=== PATIENT | female | born 1975 | race Caucasian/White ===

== ENCOUNTER → 2023-10-01 | Emergency (ER) | payer OTHER ==
[~2023-10-01] MED LIST: CEPHALEXIN 250 MG CAP ONE; DOXYCYCLINE 100 MG CAP PO ONE; HYDROCODONE/APAP 7.5/325 MG TAB ONE; KETOROLAC 30 MG/ML INJ ONE; LIDOCAINE 1% MPF 5 ML VIAL ONE
--- NOTE | 2023-10-01 18:40 | RAD REPORT ---
EXAM DESCRIPTION: US - Extremity Nonvascular Limited - 10/01/2023 5:40 pm CLINICAL HISTORY: r/o abscess on back COMPARISON: No comparisons TECHNIQUE: Sonographic grayscale and color flow images of the left upper back were obtained. FINDINGS: Diffuse skin thickening in the area of concern. Heterogeneous hypoechoic signal within the skin, extending towards the skin surface and hypo dermis, ill-defined, but measures up to 11 x 9 mm in greatest axial dimensions and 4 mm in thickness. Internal echogenic structures which may relate to a debris or mineralizing content. IMPRESSION: Ill-defined 11 mm epidermal possibly early phlegmon or abscess. Nonspecific internal ech ogenic content which may relate to debris or mineralizing.
--- NOTE | 2023-10-01 20:27 | EDPHYS ---
Physician Documentation [facility] Name: Lazara Gaston Age: 48 yrs Sex: Female : 1975 Arrival Date: 10/01/2023 Time: 16:39 Bed 19 Private MD: ED Physician Dominick Art HPI: 10/01 00:27 This 48 yrs old Female presents to ER via Ambulatory with complaints of Boil. kb 00:27 Patient is a 48-year-old female who presents for an abscess to her left upper back that kb started 3 days ago. States she went to a clinic yesterday and was given Bactrim but symptoms are worse today. States she has had these multiple times in the past and every time she has been prescribed Bactrim it is made it worse. States she told the provider that prescribed the Bactrim that yesterday and they still prescribed the same. Denies fever, chills.. 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 - Social history:: Smoking status: Patient denies any tobacco usage or history of. ROS: 10/01 00:27 Constitutional: As per HPI kb Exam: 00:27 Constitutional: This is a well developed, well nourished patient who is awake, alert, kb and in no acute distress. Head/Face: Normocephalic, atraumatic. ENT: Moist Mucous membranes Cardiovascular: Regular rate Respiratory: Respirations even and unlabored. No increased work of breathing. Talking in full sentences MS/ Extremity: Pulses equal, no cyanosis. Neurovascular intact. Full, normal range of motion. Neuro: Awake and alert, GCS 15, oriented to person, place, time, and situation. Moves all extremities. Normal gait. 00:27 Skin: abscess, that is moderate sized, of the left subscapular area, Vital Signs: 09/30 16:59 BP 167 / 99; Pulse 104; Resp 18; Temp 98.2(O); Pulse Ox 100% ; Weight 81.65 kg; Height mb9 5 ft. 6 in. ; Pain 10/10; 17:44 BP 151 / 95; Pulse 88; Resp 18; Pulse Ox 97% on R/A; mb9 19:00 BP 155 / 87; Pulse 95; Resp 16; Temp 98.5; Pulse Ox 97% on R/A; Pain 7/10; pf1 20:00 BP 149 / 76; Pulse 89; Resp 16; Pulse Ox 98% on R/A; pf1 21:00 BP 138 / 72; Pulse 85; Resp 16; Temp 98; Pulse Ox 100% on R/A; Pain 3/10; pf1 16:59 Body Mass Index 29.05 (81.65 kg, 167.64 cm) mb9 16:59 Pain Scale: Adult mb9 19:00 Pain Scale: Adult pf1 21:00 Pain Scale: Adult pf1 Procedures: 10/01 00:43 I \T\ D: Incision and drainage was performed for an abscess of the left subscapular area kb Prepped with Betadine, Anesthetized with 2 ml's 1% Lidocaine. Incised with #11 blade. Drained small amount purulent fluid. Dressing: sterile 4x4 gauze, the patient tolerated the procedure well. MDM: 09/30 16:45 Patient medically screened. kb 10/01 00:43 Differential diagnosis: abscess, insect bite, cellulitis. Data reviewed: vital signs, kb nurses notes. Counseling: I had a detailed discussion with the patient and/or guardian regarding the historical points, exam findings, and any diagnostic results supporting the discharge/admit diagnosis, the need for outpatient follow up, a family practitioner, to return to the emergency department if symptoms worsen or persist or if there are any questions or concerns that arise at home. 09/30 17:20 Order name: US Extrmty Nonvasular Limited; Complete Time: 18:41 kb 09/30 19:54 Order name: I\T\D Setup; Complete Time: 20:02 kb 09/30 20:25 Order name: Dressing - Wound; Complete Time: 20:25 pf1 Administered Medications: 09/30 17:24 Drug: Ketorolac IM 30 mg IM once Route: IM; Site: right gluteus; mb9 18:48 Follow up: Response: No adverse reaction mb9 19:24 Drug: Hydrocodone-Acetaminophen PO (7.5 mg-325 mg) 1 tabs PO once Route: PO; pf1 20:02 Follow up: Response: No adverse reaction; Marked relief of symptoms; Pain is decreased; pf1 RASS: Alert and Calm (0) 20:15 Drug: Lidocaine Infiltration (1 %) 5 ml 5 ml Infiltration once; to bedside {Note: per pf1 NP. Angella} Volume: 5 ml; Route: Infiltration; 20:32 Follow up: Response: No adverse reaction; Marked relief of symptoms; Pain is decreased pf1 20:27 Drug: Doxycycline PO 100 mg PO once Route: PO; pf1 21:00 Follow up: Response: No adverse reaction pf1 20:27 Drug: Cephalexin PO 500 mg PO once Route: PO; pf1 21:00 Follow up: Response: No adverse reaction pf1 Disposition Summary: 10/01/23 20:26 Discharge Ordered Notes: Location: Home kb Condition: Stable kb Diagnosis - Cutaneous abscess of back [any part, except buttock] kb Followup: kb - With: Emergency Department - When: As needed - Reason: Worsening of condition Followup: kb - With: Private Physician - When: 2 - 3 days - Reason: Recheck today's complaints, Continuance of care, Re-evaluation by your physician Discharge Instructions: - Discharge Summary Sheet kb - Skin Abscess, [id number] kb - Incision and Drainage, Care After kb Forms: - Medication Reconciliation Form kb - Thank You Letter kb - Antibiotic Education kb - Prescription Opioid Use kb - Patient Portal Instructions kb - Leadership Thank You Letter kb Prescriptions: - Cephalexin 500 mg Oral Capsule - take 1 capsule ORAL route every 8 hours for 10 days; 30 capsule; Refills: 0, kb Product Selection Permitted - Diflucan 150 mg Oral tablet - take 1 tablet ORAL route one time for 1 day May repeat dose in 3 days if kb symptoms persist; 2 tablet; Refills: 0, Product Selection Permitted - Doxycycline Hyclate 100 mg Oral Tablet - take 1 tablet ORAL route every 12 hours; 20 tablet; Refills: 0, Product kb Selection Permitted Addendum: 10/04/2023 09:41 I was immediately available for consultation during this patient's visit. I did not e c2 personally see the patient or discuss the patient with the VINH. . Signatures: Dispatcher [employer] Angella Interiano FNP-C MINGLER OPERATOR-Tracy Pearson RN RN mb9 Payal Morris RN RN pf1 Dominick Art MD MD ec2 Corrections: (The following items were deleted from the chart) 10/01 00:29 00:27 Patient is a 48-year-old female who presents for an abscess to her left upper kb back that started 3 days ago. States she went to a clinic yesterday and was given Bactrim but symptoms are worse today. States she has had these multiple times in the past and every time she has been prescribed Bactrim it is made it worse. States she told the provider that prescribed the Bactrim that yesterday and they still prescribed the same.. kb
--- NOTE | 2023-10-01 20:27 | ER ---
Nurse's Notes [facility] Name: Lazara Gaston Age: 48 yrs Sex: Female : 1975 Arrival Date: 10/01/2023 Time: 16:39 Bed 19 Private MD: Diagnosis: Cutaneous abscess of back [any part, except buttock] Presentation: 09/30 16:59 Chief complaint: Patient states: "I've had a boil on my left shoulder for the past 3 mb9 days and its getting worse. It's hot, swollen, and painful. I went to a clinic yesterday and they prescribed me Bactrim but it's not helping.". Coronavirus screen: Vaccine status: Patient reports receiving the 2nd dose of the covid vaccine. Ebola Screen: No symptoms or risks identified at this time. Initial Sepsis Screen: Does the patient meet any 2 criteria? HR > 90 bpm. Does the patient have a suspected source of infection? No. Patient's initial sepsis screen is negative. Risk Assessment: Do you want to hurt yourself or someone else? Patient reports no desire to harm self or others. Onset of symptoms was 2023. 16:59 Method Of Arrival: Ambulatory mb9 16:59 Acuity: KENDALL 3 mb9 Triage Assessment: 17:00 General: Appears uncomfortable, Behavior is cooperative, anxious, crying. Pain: mb9 Complains of pain in back Pain radiates to left shoulder Pain currently is 10 out of 10 on a pain scale. Quality of pain is described as burning, Pain began 2-3 days ago. Is continuous. EENT: No signs and/or symptoms were reported regarding the EENT system. Neuro: Starr Agitation-Sedation Scale (RASS): 0 - Alert and Calm Level of Consciousness is awake, alert, obeys commands, Oriented to person, place, time, situation, Appropriate for age. Cardiovascular: Patient's skin is warm and dry. Respiratory: Airway is patent Respiratory effort is even, unlabored, Respiratory pattern is regular, symmetrical, Breath sounds are clear bilaterally. GI: Abdomen is round non-distended, Bowel sounds present X 4 quads. Abd is soft and non tender X 4 quads. : No signs and/or symptoms were reported regarding the genitourinary system. Derm: Skin is pink, warm \\T\\ dry. Abscess located on left shoulder is quarter sized, has no drainage, is hot to touch, is red, is raised. Musculoskeletal: Range of motion: intact in all extremities. 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 - Social history:: Smoking status: Patient denies any tobacco usage or history of. Screenin:02 [facility] ED Fall Risk Assessment (Adult) History of falling in the last 3 months, mb9 including since admission No falls in past 3 months (0 pts) Confusion or Disorientation No (0 pts) Intoxicated or Sedated No (0 pts) Impaired Gait No (0 pts) Mobility Assist Device Used No (0 pt) Altered Elimination No (0 pt) Score/Fall Risk Level 0 - 2 = Low Risk Oriented to surroundings, Maintained a safe environment, Educated pt \\T\\ family on fall prevention, incl call for assistance when getting out of bed. Abuse screen: Denies threats or abuse. Nutritional screening: No deficits noted. Tuberculosis screening: No symptoms or risk factors identified. Assessment: 17:01 Reassessment: see triage assessment. mb9 18:19 Reassessment: Patient and/or family updated on plan of care and expected duration. Pain mb9 level reassessed. Patient is alert, oriented x 3, equal unlabored respirations, skin warm/dry/pink. Patient states symptoms have not improved. 19:00 General: Appears in no apparent distress. uncomfortable, well groomed, well developed, pf1 Behavior is calm, cooperative, appropriate for age, quiet. 19:00 Pain: Complains of pain in left back scapula region Pain currently is 8 out of 10 on a pf1 pain scale. Neuro: No deficits noted. Level of Consciousness is awake, alert, obeys commands, Oriented to person, place, time, situation. Cardiovascular: No deficits noted. Capillary refill < 3 seconds Patient's skin is warm and dry. Respiratory: No deficits noted. Airway is patent Respiratory effort is even, unlabored, Respiratory pattern is regular, symmetrical, Breath sounds are clear bilaterally. GI: No deficits noted. No signs and/or symptoms were reported involving the gastrointestinal system. : No deficits noted. No signs and/or symptoms were reported regarding the genitourinary system. EENT: No deficits noted. No signs and/or symptoms were reported regarding the EENT system. Derm: abscess to left scapula region. Musculoskeletal: No deficits noted. Circulation, motion, and sensation intact. Capillary refill < 3 seconds, Range of motion: intact in all extremities. 20:00 Reassessment: Patient appears in no apparent distress at this time. Patient and/or pf1 family updated on plan of care and expected duration. Pain level reassessed. Patient is alert, oriented x 3, equal unlabored respirations, skin warm/dry/pink. 20:40 Reassessment: Patient requested additional prescription, patient pending discharge, pf1 Provider notified. Vital Signs: 16:59 BP 167 / 99; Pulse 104; Resp 18; Temp 98.2(O); Pulse Ox 100% ; Weight 81.65 kg; Height mb9 5 ft. 6 in. ; Pain 10/10; 17:44 BP 151 / 95; Pulse 88; Resp 18; Pulse Ox 97% on R/A; mb9 19:00 BP 155 / 87; Pulse 95; Resp 16; Temp 98.5; Pulse Ox 97% on R/A; Pain 7/10; pf1 20:00 BP 149 / 76; Pulse 89; Resp 16; Pulse Ox 98% on R/A; pf1 21:00 BP 138 / 72; Pulse 85; Resp 16; Temp 98; Pulse Ox 100% on R/A; Pain 3/10; pf1 16:59 Body Mass Index 29.05 (81.65 kg, 167.64 cm) mb9 16:59 Pain Scale: Adult mb9 19:00 Pain Scale: Adult pf1 21:00 Pain Scale: Adult pf1 ED Course: 16:45 Patient arrived in ED. mg5 16:45 Angella Horner FNP-C is [facility]. kb 16:45 Dominick Art MD is Attending Physician. kb 16:46 Tracy Ferreira RN is Primary Nurse. mb9 16:58 Arm band placed on. mb9 17:00 Triage completed. mb9 17:02 Placed in gown. Bed in low position. Call light in reach. Side rails up X 1. Provided mb9 Education on: press call light if needing anything. Client placed on continuous cardiac and pulse oximetry monitoring. NIBP monitoring applied. phototypesetting equipment monitor on. Door closed. Noise minimized. Warm blanket given. 17:42 Extrmty Nonvasular Limited In Process Unspecified. EDMS 19:03 Report given to CARMELA Yañez. mb9 20:14 Primary Nurse role handed off by Tracy Ferreira RN pf1 20:14 Payal Morris, CARMELA is Primary Nurse. pf1 20:35 Dressings: 4X4s X 1; back with foam tape. pf1 20:44 No provider procedures requiring assistance completed. Patient did not have IV access pf1 during this emergency room visit. Administered Medications: 17:24 Drug: Ketorolac IM 30 mg IM once Route: IM; Site: right gluteus; mb9 18:48 Follow up: Response: No adverse reaction mb9 19:24 Drug: Hydrocodone-Acetaminophen PO (7.5 mg-325 mg) 1 tabs PO once Route: PO; pf1 20:02 Follow up: Response: No adverse reaction; Marked relief of symptoms; Pain is decreased; pf1 RASS: Alert and Calm (0) 20:15 Drug: Lidocaine Infiltration (1 %) 5 ml 5 ml Infiltration once; to bedside {Note: per pf1 NP. Angella} Volume: 5 ml; Route: Infiltration; 20:32 Follow up: Response: No adverse reaction; Marked relief of symptoms; Pain is decreased pf1 20:27 Drug: Doxycycline PO 100 mg PO once Route: PO; pf1 21:00 Follow up: Response: No adverse reaction pf1 20:27 Drug: Cephalexin PO 500 mg PO once Route: PO; pf1 21:00 Follow up: Response: No adverse reaction pf1 Medication: 17:02 VIS not applicable for this client. mb9 Outcome: 20:26 Discharge ordered by . [place] 20:44 Discharged to home ambulatory, with family, pf1 20:44 Condition: improved 20:44 Discharge instructions given to patient, family, Instructed on discharge instructions, follow up and referral plans. Demonstrated understanding of instructions, follow-up care, 21:02 Prescriptions given X 3, pf1 21:02 Patient left the ED. pf1 Signatures: Dispatcher [employer] Angella Interiano, CRUSHER AND BINDER OPERATOR-C CRUSHER AND BINDER OPERATOR-Ckb Tracy Ferreira, RN RN mb9 Payal Morris RN RN pf1 Kristi Whatley 5
[2023-10-01 21:14] VITALS: TEMP 98.2
[2023-10-01 21:38] VITALS: BP 151/95; O2SAT 97
== END ==
LOC: ER 16:39
PROC: 0H96XZZ Drainage of Back Skin, External Approach (ICD-10-PCS; principal; 2023-10-01)
DX: L02.212 Cutaneous abscess of back [any part, except buttock and flank] (principal); Z88.5 Allergy status to narcotic agent; Z88.8 Allergy status to other drugs, medicaments and biological substances
CPT/HCPCS: 76882; 96372; 99285; 10060; J2001

== ENCOUNTER → 2023-10-03 | Emergency (ER) | payer OTHER ==
[~2023-10-03] MED LIST changes: -CEPHALEXIN 250 MG CAP ONE; +CLINDAMYCIN 300MG D5W 300 MG/50 ML BAG IV SCH; -DOXYCYCLINE 100 MG CAP PO ONE; +FENTANYL CITR 100 MCG/2 ML ONE; -HYDROCODONE/APAP 7.5/325 MG TAB ONE; -KETOROLAC 30 MG/ML INJ ONE; +LIDOCAINE 1% 20 ML MDV ONE; -LIDOCAINE 1% MPF 5 ML VIAL ONE; +LORazepam 2 MG/ML VIAL ONE; +ONDANSETRON 4 MG/2 ML VIAL ONE
--- OUTSIDE RECORDS SUMMARY | 2023-10-03 14:11 | XMS REPORT | Continuity of Care Document ---
Author Name Unknown Address [address] [facility] [address] [id number] [facility] thconnect Address [address] [facility] [address] [place] [address] Care Team Providers Care Spud Grader Name Role Phone Jayant Beltran Attending Clinician Unavailable Physician, No Primary or Family Admitting Clinic brenda Unavailable Payers Payer Name Policy Type Policy Number Effective Date Expirati on Date Source Allergies, Adverse Reactions, Alerts Allergy Name Allergy Type Status Severity Reaction(s) Onset Date Inactive Date Treating Clinician Comments Source No Known Allergie s DA Active U 10-10 00:00: 00 [facility] Encounters Start Date/Time End Date/Time Encounter Type Admission Type Attending Clinicians Care Facility Care Department Encounter ID Source 2022-10-10 20:03:00 2022-10-10 22:04:00 Emergency EM Jayant Beltran [facility] [id number] [facility] Notes Date/Time Note Provider Source 2022-10-10 21:31:00 [id number]:31:00 [facility] ([facility])EMERGENCY PROVIDER REPORTREPORT#:[id number] REPORT STATUS: SignedDATE:10/10/22 TIME: 2130 PATIENT: SUJIT PETIT UNIT #: [id number]#: [id number] ROOM/BED:AGE: 47 SEX: F PCP PHYS: No Primary or Family PhysicianSERVICE AUTHOR: Mayur Beltran LAW ENFORCEMENT INSTRUCTOR * ALL edits or amendments must be made on the electronic/computer document * Mayur Beltran 10/10/22 2131:HPI-Facial Problem/Injury Free Text HPI NotesFree Text HPI [id number] F in for evaluation of facial abscess on left side fo face for 1 week. Patient denies any treatment of symtpoms. Patient also denies any fever or chills. GeneralConfirmed Patient YesPatient Type New patientInitial Greet Date/Time 10/10/222016 PresentationChief Complaint Swelling, abscess to left faceHx Obtained From PatientOnset Occurred One week agoSymptom Duration Since onsetProgression since Onset Gradually worseningCaused by No trauma by historyLocation Temporomandibular jt LQuality Aching, PainfulRadiation Does not radiateSeverity: Onset Pain level 2 out of 10Severity: Current Pain level 3 out of 10Associated Other Pt denies other symptomsExacerbated by PalpationRelieved by Nothing Review of Systems ROS StatementsAll systems rev neg except as marked. Basic Review of SystemsBasic ROS RESP: No SOB, CV: No chest pain, GI: No abd pain/vomiting, : No dysuria/frequency, HEM: No bleeding/bruising, PSYCH: NL thought content Focused Review of SystemsConstitutionalDenies: Chills, Fatigue, Fever. Ears/Nose/ThroatDenies: Sore throat, Throat pain, Toothache. MusculoskeletalDenies: Back pain, Neck pain. SkinReports: Abscess, Erythema. Denies: Rash, Swelling. NeurologicDenies: Generalized weakness, Headache, Lightheaded, Spinning sensation, Syncope. Past Medical History - AdultStated Complaint ABCESS LT SIDE OF OF FACE(YAZDANISM AREA)Review of Nursing Notes Rev avail, and agreePt reports no significant: Past medical history, Past surgical history Physical Exam Vital SignsReview of Vital Signs Reviewed Basic Physical ExamBasic PE GEN: Well appearing/NAD, RESP: No resp distress, CV: Reg rate rhythm,ABD: Soft/non-tender, EXT: No gross abnormality, SKIN: No rashes, warm/dry, PSYCH: NL thought content Focused PEGeneral/Const General/Const Awake, Alert, No acute distress, CooperativeMS Head Head Atraumatic, NormocephalicEyes Eyes Atraumatic, PERRL, EOMI, No periorbital redness, No periorbital swelling, No photophobiaEars/Nose/Throat Ears/Nose/Throat Atraumatic, Airway patent, Mucous membranes moist, No pooling of secretions, No trismus, Tympanic membs NL, Nose exam NL, No sinus tenderness, No facial swellingMS Neck Neck Atraumatic, Supple, No meningismus, Full range of motion, No adenopathy,No swelling, Non-tender, No midline vertebral tendResp/Chest Respiratory/Chest Atraumatic, Breath sounds NL, Breath sounds = bilat, No respiratory distress, No wheezing, No retractionsCardiovascular Cardiovascular Heart rate NL, Regular rhythm, Heart sounds NL, Cap refill notdelayed, Peripheral circulation NLSkin Abscess #1 Location/Condition Location (left temp;e), Small, Erythema surrounding, Indurated, Tender. Negative: Fluctuant, Purulent discharge. Neurologic Neurologic Oriented X3, Speech NL, No motor deficits, No sensory deficits, CNII - XII intact Interpretation Diagnostics Lab Results InterpretationConsiderations Independ review imaging, Reviewed prior records Point of Care TestingPulse Oximetry Pulse Ox % 99 On: Room air Interpretation Interpreted by or, Pulse oximetry normal Time 2140 Re-Evaluation MDM Free Text MDM NotesFree Text MDM [id number] female in for evaluation of abscess to the left side of face for 1 week. Plan to discharge patient home with antibiotics and pain medicine. Patient doesnot have a drainable abscess. Patient referred to plastics for further evaluation. ED CourseMedication(s) OrderedMedication(s) Ordered:Anti-Infective Agents Sig/Bertha Start time Last Medication Dose Route Stop Time Status Admin Doxycycline 100 MG X1ED STA 10/10 2132 DC Monohydrate PO 10/10 2133 Cardiovascular Drugs Sig/Bertha Start time Last Medication Dose Route Stop Time Status Admin Lidocaine HCl 5 ML X1ED STA 10/10 2016 DC LOCAL 10/10 2017 Central Nervous System Agents Sig/Bertha Start time Last Medication Dose Route Stop Time Status Admin Hydrocodone Bitart/ 1 TAB X1ED STA 10/10 2132 DC Acetaminophen PO 10/10 2133 Differential DiagnosisDifferential Diagnosis Abrasion, Contusion, abscess Patient Discharge Departure Vital Signs/ConditionCondition Stable Clinical ImpressionClinical ImpressionPrimary Impression: Orbital cellulitis on left Disposition DecisionDischarge )( Discharged to Home Yes )( Time 2136 )( Date 10/10/22 Discharge/Care PlanCounseled Regarding Diagnosis, Lab results, Prescriptions, Need for follow-up, When to return to EDPatient Instructions ED Periorbital CellulitisReferralsProvider Referral: Baudilio Haile MD Address: [address] [place] [address] [address] [place] [address] Provider Referral: Joellen Tobar MD Address: [address] [facility] [place] [address] Provider Referral: Jorje Carroll MD Address: [address] [place] [facility] [address] [place] [address] Provider Referral: Eber Riley Jr, DO Address: [address] [place] [address] Discharge NoteI have spoken with the patient and/or caregivers. I have explained the patient'scondition, diagnoses and treatment plan based on the information available to meat this time. I have answered the patient's and/or caregiver's questions and addressed any concerns. The patient and/or caregivers have as good an understanding of the patient's diagnosis, condition and treatment plan as can beexpected at this point. The vital signs have been stable. The patient's condition is stable and appropriate for discharge from the emergency department. The patient will pursue further outpatient evaluation with the primary care physician or other designated or consulting physician as outlined in the discharge instructions. The patient and/or caregivers are agreeable to this planof care and follow-up instructions have been explained in detail. The patient and/or caregivers have received these instructions in written format and have expressed an understanding of the discharge instructions. The patient and/or caregivers are aware that any significant change in condition or worsening of symptoms should prompt an immediate return to this or the closest emergency department or a call to 911. Brandy Fu 10/12/22 1514:Past Medical History - AdultAllergiesCoded Allergies:No Known Allergies (10/10/22) Physical Exam Vital SignsVital SignsFirst Documented: Result Date Time Pulse Ox 99 10/10 2140 B/P 170/106 10/10 2140 B/P Mean 127 10/10 2140 O2 Delivery Room air 10/10 2140 Temp 36.8 10/10 2140 Pulse 90 10/10 2140 Resp 10/10 Last Documented: Result Date Time Pulse Ox 99 10/10 2140 B/P 170/106 10/10 2140 B/P Mean 127 10/10 2140 O2 Delivery Room air 10/10 2140 Temp 36.8 10/10 2140 Pulse 90 10/10 2140 Resp 10/10 Patient Discharge Departure Vital Signs/ConditionVital SignsFirst Documented: Result Date Time Pulse Ox 99 10/10 2140 B/P 170/106 10/10 2140 B/P Mean 127 10/10 2140 O2 Delivery Room air 10/10 2140 Temp 36.8 10/10 2140 Pulse 90 10/10 2140 Resp 10/10 Last Documented: Result Date Time Pulse Ox 99 10/10 2140 B/P 170/106 10/10 2140 B/P Mean 127 10/10 2140 O2 Delivery Room air 10/10 2140 Temp 36.8 10/10 2140 Pulse 90 10/10 2140 Resp 10/10 All vital signs available at the time of this entry have been reviewed. Discharge/Care Plan(Auto) PrescriptionsCurrent Visit ScriptsDOXYCYCLINE HYCLATE (VIBRAMYCIN) 100 MG PO Q12H DOXYCYCLINE HYCLATE (VIBRAMYCIN) 100 MG PO Q12H #20 CAPS traMADol (ULTRAM) 50 MG PO Q6H PRN PRN ACUTE PAIN traMADol (ULTRAM) 50 MG PO Q6H PRN PRN ACUTE PAIN #15 TABS ACETAMINOPHEN/CODEINE (TYLENOL WITH CODEINE #3 300/30 MG) 1 TAB PO Q6H PRN PRN ACUTE PAIN ACETAMINOPHEN/CODEINE (TYLENOL WITH CODEINE #3 300/30 MG) 1 TAB PO Q6H PRN PRN ACUTE PAIN #20 TABS Supervising Physician Note MidLv Saw Pt AloneI have reviewed the PA/LAW ENFORCEMENT INSTRUCTOR's note and plan of care. I was available for consultation as needed at all times during the patient's visit in the emergency department. I agree with the clinical impression, plan and disposition. at 1156 at 1502RPT #:[id number] OF REPORTEDEmerde queen medical center department [id number]:31:00G.[id number] ilable for patient [id number] HCACL
[2023-10-03 14:54] LABS: Hematocrit 39.9 % (36.0-45.0); Hemoglobin 13.4 g/dL (12.0-15.0); MCH 29.3 pg (27.0-35.0); MCHC 33.5 g/dL (32.0-36.0); MCV 87.5 fL (80-100); MPV 7.7 fL (7.6-11.3); Platelets 277 thou/uL (152-406); RBC Red Blood Cell Count 4.57 M/uL (3.86-4.86); Red Cell Distribution Width 13.7 % (12.1-15.2)
[2023-10-03 15:02] LABS: Anion Gap 14.3 mEq/L (5.0-15.0); Potassium 4.3 mEq/L (3.5-5.1)
--- NOTE | 2023-10-03 16:45 | ER ---
Nurse's Notes [facility] Name: Lazara Gaston Age: 48 yrs Sex: Female : 1975 Arrival Date: 10/03/2023 Time: 14:08 Bed 16 Private MD: Diagnosis: Cutaneous abscess of trunk Presentation: 10/02 14:22 Chief complaint: Abscess on left upper back x 5 days, pain became unbearable today. hb Coronavirus screen: At this time, the client does not indicate any symptoms associated with coronavirus-19. Ebola Screen: No symptoms or risks identified at this time. Initial Sepsis Screen: Does the patient meet any 2 criteria? HR > 90 bpm. No. Patient's initial sepsis screen is negative. Does the patient have a suspected source of infection? No. Patient's initial sepsis screen is negative. Risk Assessment: Do you want to hurt yourself or someone else? Patient reports no desire to harm self or others. Onset of symptoms was October 03, 2023. 14:22 Method Of Arrival: Ambulatory hb 14:22 Acuity: KENDALL 3 hb Triage Assessment: 14:24 General: Appears in no apparent distress. Behavior is calm, cooperative. Pain: Pain hb currently is 10 out of 10 on a pain scale. Neuro: Level of Consciousness is awake, alert, obeys commands, Oriented to person, place, time, situation. Cardiovascular: Patient's skin is warm and dry. Respiratory: Respiratory effort is even, unlabored, Respiratory pattern is regular, symmetrical. Derm: Abscess located on left scapular area is golf ball sized, is hot to touch, is red, is raised, was lanced by patient prior to arrival. 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 - Social history:: Smoking status: Patient denies any tobacco usage or history of. Screenin:53 [facility] ED Fall Risk Assessment (Adult) History of falling in the last 3 months, me1 including since admission No falls in past 3 months (0 pts) Confusion or Disorientation No (0 pts) Intoxicated or Sedated No (0 pts) Impaired Gait No (0 pts) Mobility Assist Device Used No (0 pt) Altered Elimination No (0 pt) Score/Fall Risk Level 0 - 2 = Low Risk Maintained a safe environment, Provided non-skid footwear, Hourly rounding (assess needs \T\ fall precautionary measures) done. Abuse screen: Denies threats or abuse. Nutritional screening: No deficits noted. Tuberculosis screening: No symptoms or risk factors identified. Assessment: 14:53 General: Appears uncomfortable, well groomed, well developed, well nourished, Behavior me1 is calm, cooperative, appropriate for age, Reports abscess to left upper back x5 days. Pain became unbearable today. Pain: Complains of pain in back and left scapular area Pain does not radiate. Pain currently is 10 out of 10 on a pain scale. Quality of pain is described as sharp, throbbing, Pain began 5 days ago Is continuous. Neuro: Level of Consciousness is awake, alert, obeys commands, Oriented to person, place, time, situation, Appropriate for age. Cardiovascular: Capillary refill < 3 seconds Patient's skin is warm and dry. Respiratory: Airway is patent Trachea midline Respiratory effort is even, unlabored, Respiratory pattern is regular, symmetrical. Derm: Wound noted back and left scapular area Wound is abscess- red, swollen and hot to the touch. 16:00 Reassessment: Patient appears in no apparent distress at this time. Patient is alert, me1 oriented x 3, equal unlabored respirations, skin warm/dry/pink. Patient states feeling better. Vital Signs: 14:22 BP 163 / 100; Pulse 108; Resp 18; Temp 98.2(O); Pulse Ox 96% on R/A; Weight 81.65 kg; hb Height 5 ft. 6 in. ; Pain 10/10; 15:00 BP 156 / 92; Pulse 100; Resp 16; Pulse Ox 98% on R/A; me1 16:00 BP 150 / 88; Pulse 97; Resp 16; Pulse Ox 97% on R/A; me1 16:30 BP 124 / 84; Pulse 99; Resp 18; Pulse Ox 100% on R/A; me1 14:22 Body Mass Index 29.05 (81.65 kg, 167.64 cm) hb 14:22 Pain Scale: Adult hb ED Course: 14:10 Patient arrived in ED. mg5 14:14 Yoselin Escoto MD is Attending Physician. cp3 14:23 Triage completed. hb 14:25 Arm band placed on. hb 14:26 Client placed on continuous cardiac and pulse oximetry monitoring. NIBP monitoring hb applied. Pulse ox on. NIBP on. 14:27 Lolis Eisenberg, RN is Primary Nurse. me1 14:40 Initial lab(s) drawn, by me, sent to lab. Inserted saline lock: 22 gauge in left me1 antecubital area, using aseptic technique. 14:53 Patient has correct armband on for positive identification. Bed in low position. Call me1 light in reach. Side rails up X 1. Provided Education on: POC. Verbalized understanding. . 14:53 No provider procedures requiring assistance completed. me1 17:00 IV discontinued, intact, bleeding controlled, No redness/swelling at site. Pressure me1 dressing applied. Dressings: ABD pad X 1; back and left scapular area. Administered Medications: 14:44 CANCELLED (patient states morphine makes her severely itchy and causes n/vv): me1 morphineor iv 4 mg IVP once over 4 mins 14:52 Drug: Ativan IVP 1 mg IVP once Route: IVP; Site: left antecubital; me1 15:06 Follow up: Response: No adverse reaction; Anxiety decreased me1 14:52 Drug: fentaNYL (PF) IVP 50 mcg IVP once Route: IVP; Site: left antecubital; me1 15:06 Follow up: Response: No adverse reaction; Pain is decreased me1 14:53 Drug: Ondansetron IVP 4 mg IVP once; over 2 minutes Route: IVP; Site: left antecubital; me1 15:06 Follow up: Response: No adverse reaction; Nausea is decreased me1 16:05 Drug: Lidocaine Infiltration (1 %) 10 ml 20 ml Infiltration once; to bedside {Note: me1 administered by Dr Escoto..} Volume: 20 ml; Route: Infiltration; 16:11 Drug: Clindamycin IVPB 300 mg IVPB once over 30 mins; (mix in 50 mL) Route: IVPB; me1 Infused Over: 30 mins; Site: left antecubital; 16:38 Follow up: Response: No adverse reaction; IV Status: Completed infusion; IV Intake: [id number] Medication: 14:53 VIS not applicable for this client. me1 Intake: 16:38 IV: 50ml; Total: 50ml. me1 Outcome: 16:44 Discharge ordered by MD. cp3 17:01 Discharged to home ambulatory, with significant other, me1 17:01 Condition: stable 17:01 Discharge instructions given to patient, significant other, Instructed on discharge instructions, follow up and referral plans. medication usage, Demonstrated understanding of instructions, follow-up care, medications, Prescriptions given X 2, 17:09 Patient left the ED. me1 Signatures: Yoselin Escoto MD MD cp3 Venita Grant RN RN Lolis Eisenberg RN RN me1 Kristi Whatley mg5 Corrections: (The following items were deleted from the chart) 14:24 14:22 BP 163 / 100; Pulse 108bpm; Resp 18bpm; Pulse Ox 96% RA; Temp 98.2F Oral; Pain hb 10/10, Adult; hb
--- NOTE | 2023-10-03 16:45 | EDPHYS ---
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 - Social history:: Smoking status: Patient denies any tobacco usage or history of. Vital Signs: 14:22 BP 163 / 100; Pulse 108; Resp 18; Temp 98.2(O); Pulse Ox 96% on R/A; Weight 81.65 kg; hb Height 5 ft. 6 in. ; Pain 10/10; 15:00 BP 156 / 92; Pulse 100; Resp 16; Pulse Ox 98% on R/A; me1 16:00 BP 150 / 88; Pulse 97; Resp 16; Pulse Ox 97% on R/A; me1 16:30 BP 124 / 84; Pulse 99; Resp 18; Pulse Ox 100% on R/A; me1 14:22 Body Mass Index 29.05 (81.65 kg, 167.64 cm) hb 14:22 Pain Scale: Adult hb MDM: 14:33 Patient medically screened. cp3 10/02 14:29 Order name: CBC w/o diff; Complete Time: 16:32 cp3 10/02 14:29 Order name: Basic Metabolic Panel; Complete Time: 16:32 cp3 10/02 14:29 Order name: Saline Lock cp3 10/02 14:29 Order name: Incision \T\ Drainage Setup; Complete Time: 14:57 cp3 Administered Medications: 14:44 CANCELLED (patient states morphine makes her severely itchy and causes n/vv): me1 morphineor iv 4 mg IVP once over 4 mins 14:52 Drug: Ativan IVP 1 mg IVP once Route: IVP; Site: left antecubital; me1 15:06 Follow up: Response: No adverse reaction; Anxiety decreased me1 14:52 Drug: fentaNYL (PF) IVP 50 mcg IVP once Route: IVP; Site: left antecubital; me1 15:06 Follow up: Response: No adverse reaction; Pain is decreased me1 14:53 Drug: Ondansetron IVP 4 mg IVP once; over 2 minutes Route: IVP; Site: left antecubital; me1 15:06 Follow up: Response: No adverse reaction; Nausea is decreased me1 16:05 Drug: Lidocaine Infiltration (1 %) 10 ml 20 ml Infiltration once; to bedside {Note: me1 administered by Dr Escoto..} Volume: 20 ml; Route: Infiltration; 16:11 Drug: Clindamycin IVPB 300 mg IVPB once over 30 mins; (mix in 50 mL) Route: IVPB; me1 Infused Over: 30 mins; Site: left antecubital; 16:38 Follow up: Response: No adverse reaction; IV Status: Completed infusion; IV Intake: [id number] Disposition Summary: 10/03/23 16:44 Discharge Ordered Condition: Stable cp3 Diagnosis - Cutaneous abscess of trunk cp3 Discharge Instructions: - Discharge Summary Sheet cp3 - Skin Abscess cp3 Forms: - Medication Reconciliation Form cp3 - Thank You Letter cp3 - Antibiotic Education cp3 - Prescription Opioid Use cp3 - Patient Portal Instructions cp3 - Leadership Thank You Letter cp3 Prescriptions: - acetaminophen-codeine 300-15 mg Oral tablet - take 1 tablet ORAL route 3 times per day as needed for pain; 12 tablet; cp3 Refills: 0, Product Selection Permitted - Minocycline 100 mg Oral Capsule - take 1 tablet ORAL route every 12 hours for 5 days; 10 capsule; Refills: 0, cp3 Product Selection Permitted Signatures: Dispatcher [employer] Yoselin Saldivar MD MD cp3 Venita Grant RN RN Lolis Eisenberg RN RN me1 Corrections: (The following items were deleted from the chart) 14:44 14:29 morphine IVP or IV 4 mg IVP once over 4 mins ordered. cp3 me1
[2023-10-03 17:38] VITALS: BP 124/84; TEMP 98.2; O2SAT 100
== END ==
LOC: ER 14:08
PROC: 0H96XZZ Drainage of Back Skin, External Approach (ICD-10-PCS; principal; 2023-10-03)
DX: L02.212 Cutaneous abscess of back [any part, except buttock and flank] (principal); Z88.5 Allergy status to narcotic agent; Z88.8 Allergy status to other drugs, medicaments and biological substances
CPT/HCPCS: 80048; 36415; 85027; 10060; J2001; J3010; J2405; 96365; 96375; 99284